=== PATIENT | female | born 1975 | race Caucasian/White ===

== ENCOUNTER 2016-12-09 07:11 | Day surgery (SDC) | payer BC ==
[~2016-12-09 07:11] MED LIST: Lactated Ringers 1,000 ML IV SCH; Lidocaine 2% 5 ML SDV ONE; Midazolam 1 MG/ML 2 ML SDV ONE; Ondansetron 4 MG/2 ML SDV ONE; Propofol 200 MG/20 ML SDV ONE; Sodium Chloride 0.9% 20 ML ONE; ceFAZolin 1 GM Vial ONE; ceFAZolin 2 GM in Premix Bag 1 BAG IV SCH; fentaNYL 250 MCG/5 ML SDV ONE
[2016-12-09] MEDS ORDERED: Lidocaine 1% 20 ML MDV ONE (07:32)
[2016-12-09] MEDS ORDERED: Acetaminophen/HYDROcodone 325-5 MG Tab PO PRN (08:00)
[2016-12-09] MEDS ORDERED: fentaNYL 100 MCG/2 ML SDV IVPUSH PRN (08:38)
--- NOTE | 2016-12-09 09:15 | PCM.PREANE ---
Preanesthetic Assessment - Procedure Proposed Procedure: Left knee arthroscopy and menisectomy - Anesthesia/Transfusion/Family Hx Anesthesia History: Prior Anesthesia Without Reaction Family History of Anesthesia Reaction: No Transfusion History: No Prior Transfusion(s) Intubation History: Unknown - Review of Systems General: No Symptoms Pulmonary: No Symptoms Cardiovascular: No Symptoms Gastrointestinal: No Symptoms, Other (GERD hx occasionally) Neurological: Gait Disturbance (due to knee pain) Other: Reports: None - Physical Assessment NPO Status Date: 12/08/16 NPO Status Time: 22:00 O2 Sat by Pulse Oximetry: 96 Respiratory Rate: 16 Vital Signs: Last Vital Signs Temp 98.4 F 12/09/16 07:26 Pulse 66 12/09/16 07:26 Resp 16 12/09/16 07:26 BP 118/86 12/09/16 07:26 Pulse Ox 96 12/09/16 07:26 Height: 5 ft 10 in Weight: 225 lb ASA Class: 2 Mental Status: Alert & Oriented x3 Airway Class: Mallampati = 1 Dentition: Reports: Normal Dentition Thyro-Mental Finger Breadths: 3 Mouth Opening Finger Breadths: 3 ROM/Head Extension: Full Lungs: Clear to Auscultation, Normal Respiratory Effort Cardiovascular: Regular Rate, Regular Rhythm, No Murmurs - Lab Values: Laboratory Last Values Urine HCG, Qual NEGATIVE (NEGATIVE) 12/09/16 07:15 - Allergies Allergies/Adverse Reactions: Allergies Allergy/AdvReac Type Severity Reaction Status Date / Time codeine Allergy Itching Verified 12/08/16 07:39 - Blood Blood Available: No Product(s) Available: None - Acknowledgements Anesthesia Type Planned: General Anesthesia Pt an Appropriate Candidate for the Planned Anesthesia: Yes Alternatives and Risks of Anesthesia Discussed w Pt/Guardian: Yes Pt/Guardian Understands and Agrees with Anesthesia Plan: Yes PreAnesthesia Questionnaire Gastrointestinal History: Reports: GERD Musculoskeletal History: Reports: None Endocrine/Metabolic History: Reports: Obesity/BMI 30+ - Past Surgical History Head Surgeries/Procedures: Reports: None Musculoskeletal Surgical History: Reports: Arthroscopic Knee Other Musculoskeletal Surgeries/Procedures:: left knee arthroscopy x2 - SUBSTANCE USE Smoking Status *Q: Former Smoker Tobacco Use Within Last Twelve Months: No Recreational Drug Use History: No - HOME MEDS Home Medications: Home Meds Omeprazole/Sodium Bicarbonate [Zegerid 20 MG] 1 tab PO ASDIRECTED PRN 12/08/16 [ History] - CURRENT (IN HOUSE) MEDS Current Meds: Current Medications Hydrocodone Bitart/Acetaminophen ([place] 325-5 Mg) 1 - 2 tab PO Q4H PRN PRN Reason: Pain Fentanyl (Sublimaze) 50 mcg IVPUSH Q5M PRN PRN Reason: Pain (severe 7-10) Stop: 12/10/16 08:38 Cefazolin Sodium/Dextrose 2 gm (/ Premix) 50 mls @ 100 mls/hr IV ONCALL GALEN Lactated Ringer's (Ringers, Lactated) 1,000 mls @ 100 mls/hr IV ASDIRECTED GALEN Last Admin: 12/09/16 07:55 Dose: 100 mls/hr Discontinued Medications Cefazolin Sodium (Ancef) Confirm Administered Dose 2 gm .ROUTE .STK-MED ONE Stop: 12/09/16 07:12 Fentanyl (Sublimaze) Confirm Administered Dose 250 mcg .ROUTE .STK-MED ONE Stop: 12/09/16 07:12 Sodium Chloride (Normal Saline) Confirm Administered Dose 20 mls @ as directed .ROUTE .STK-MED ONE Stop: 12/09/16 07:12 Lidocaine (Xylocaine-Mpf 2%) Confirm Administered Dose 5 ml .ROUTE .STK-MED ONE Stop: 12/09/16 07:12 Lidocaine HCl (Xylocaine 1%) Confirm Administered Dose 20 ml .ROUTE .STK-MED ONE Stop: 12/09/16 07:33 Midazolam HCl (Versed 1 Mg/Ml) Confirm Administered Dose 2 mg .ROUTE .STK-MED ONE Stop: 12/09/16 07:12 Ondansetron HCl (Zofran) Confirm Administered Dose 4 mg .ROUTE .STK-MED ONE Stop: 12/09/16 07:12 Propofol (Diprivan 20 Ml) Confirm Administered Dose 200 mg .ROUTE .STK-MED ONE Stop: 12/09/16 07:12
[2016-12-09] MEDS ORDERED: Metoprolol Tartrate 5 MG/5 ML SDV ONE (09:58)
--- NOTE | 2016-12-09 10:17 | PCM.OPNOTE ---
- General Post-Op/Procedure Note Date of Surgery/Procedure: 12/09/16 Operative Procedure(s): L knee scope with PLM/PMM Post-Op Diagnosis: L knee ACL tear. L knee med/lat meniscus tear. DJD L knee Anesthesia Technique: General LMA Primary Surgeon: Maryana Sánchez Shoe Cleaner: José Miguel Sigala in mLs: 5 Condition: Good Free Text/Narrative:: tt=23 min #[id number]
--- NOTE | 2016-12-09 10:42 | PCM.POSTAN ---
POST ANESTHESIA ASSESSMENT - MENTAL STATUS Mental Status: Alert, Oriented - RESPIRATORY Respiratory Status: Respiratory Rate WNL, Airway Patent, O2 Saturation Stable - CARDIOVASCULAR CV Status: Pulse Rate WNL, Blood Pressure Stable - GASTROINTESTINAL GI Status: No Symptoms - PAIN Pain Score: 2 - POST OP HYDRATION Hydration Status: Adequate & Stable
[2016-12-09] MEDS ORDERED: Scopolamine 1.5 MG Transdermal Patch ONE (11:21)
[2016-12-09] MEDS ORDERED: Metoclopramide 10 MG/2 ML SDV ONE (11:36)
[2016-12-09] MEDS ORDERED: diphenhydrAMINE 50 MG/ML SDV ONE (11:36)
[2016-12-09] MEDS ORDERED: Dexamethasone 4 MG/ML 5 ML MDV ONE (11:39)
--- NOTE | 2016-12-09 13:10 | PCM48HPAN ---
Post Anesthesia Note - EVALUATION WITHIN 48HRS OF ANESTHETIC Vital Signs in Normal Range: Yes Patient Participated in Evaluation: Yes Respiratory Function Stable: Yes Airway Patent: Yes Cardiovascular Function Stable: Yes Hydration Status Stable: Yes Pain Control Satisfactory: Yes Nausea and Vomiting Control Satisfactory: Yes Mental Status Recovered: Yes
--- NOTE | 2016-12-09 15:16 | OR ---
SURGEON: Maryana Sánchez MD DATE OF PROCEDURE: 12/09/2016 PREOPERATIVE DIAGNOSES: 1. Left knee medial meniscus tear. 2. Left knee lateral meniscus tear. 3. Left knee anterior cruciate ligament tear, status post reconstruction. POSTOPERATIVE DIAGNOSES: 1. Left knee medial meniscus tear. 2. Left knee lateral meniscus tear. 3. Left knee anterior cruciate ligament tear, status post reconstruction. 4. Degenerative joint disease, left knee. PROCEDURE: Left knee arthroscopy with partial medial and lateral meniscectomies. WEIGHT CONTROL ENGINEER: José Miguel Sigala PA-C. ANESTHESIA: General. ESTIMATED BLOOD LOSS: 5 mL. TOURNIQUET TIME: 23 minutes. COMPLICATIONS: None. DVT PROPHYLAXIS: Not indicated. IMPLANTS USED: None. BRIEF HISTORY: Daisy is a 41-year-old female who has previously undergone an ACL reconstruction many years ago. She has been bothered by persistent pain and locking in the knee. Due to her lack of response to conservative treatment, I did recommend surgical intervention. The risks and goals of procedure were discussed with the patient and were documented preoperatively. She agreed to proceed. DESCRIPTION OF PROCEDURE: The patient was properly identified and brought to the operating room. She was transferred from the OR cart and placed on the operating table in supine position. General anesthesia was administered. After adequate anesthesia was obtained, a well-padded tourniquet was applied to the left lower extremity. The left lower extremity was then prepped in standard fashion using ChloraPrep solution. It was then sterilely draped. A time-out was performed to ensure correct site and procedure. Preoperative antibiotics were given. The surgical site had been marked preoperatively. An Esmarch was used to exsanguinate the left lower extremity and the tourniquet was inflated to 250 mmHg. A lateral portal arthrotomy was established. Blunt trocar and cannula were introduced into the suprapatellar pouch. Camera, inflow, and outflow were assembled. No significant synovitis was noted. The patellofemoral joint was visualized. Degenerative changes were noted. The patella appeared to track centrally. I then extended down the lateral and medial gutter. She had the start of osteophytes along the medial and lateral femoral condyle. No loose bodies were identified. I then entered the medial compartment. A medial portal arthrotomy was established. A blunt probe was inserted. She had degenerative tearing of the posterior horn of the medial meniscus. This was resected with a combination of biters and shaver. It was again probed and found to be stable. 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 No loose fragments were identified. I then entered the notch. Both the ACL and PCL were visualized. The ACL appeared to have some laxity. Its insertion point onto the lateral femoral condyle remained intact. However, a portion of the anterior bundle did not have any attachment to the tibia. This was loose and did have potential for impingement. It was debrided with the shaver. The remainder of the ACL was intact. I then entered the lateral compartment. Again, unilateral compartment grade 3 chondromalacia was noted along the lateral tibial plateau as well as the lateral femoral condyle. She did have degenerative tearing of the lateral meniscus. This was resected with a combination of biters and shaver. The remainder of the meniscus was probed and found to be stable. I then re-entered the notch. She had diffuse grade 3 to grade 4 chondromalacia along the undersurface of the patella with similar findings along the trochlear groove. She did have an area of loose cartilage along the trochlear groove as well as the patella which was treated with chondroplasty. The instruments were then removed from the knee. The portal sites were closed with 3-0 nylon. A 1% lidocaine was injected along the portal tracts. Xeroform gauze was placed over the wound and a bulky dressing was applied. The tourniquet was then deflated. She was awakened from her anesthetic and transferred back to the operating room cart. She was brought to the recovery room in stable condition. All needle and sponge counts were correct. SURJIT / MARIO ALBERTO /[id number]
[2016-12-09 15:30] VITALS: BP 132/96
== END 2016-12-09 11:45 | disposition home or self-care (01) ==
LOC: MW.SDS 07:11
PROVIDERS: ATTEND Orthopaedic Surgery
DX: M23.322 Other meniscus derangements, posterior horn of medial meniscus, left knee (principal); M23.362 Other meniscus derangements, other lateral meniscus, left knee; M65.862 Other synovitis and tenosynovitis, left lower leg; M94.262 Chondromalacia, left knee; M17.12 Unilateral primary osteoarthritis, left knee; E66.9 Obesity, unspecified; Z87.891 Personal history of nicotine dependence; Z88.5 Allergy status to narcotic agent; Z98.890 Other specified postprocedural states; Z68.32 Body mass index [BMI] 32.0-32.9, adult
CPT/HCPCS: 29880; 81025; J0690; J2250; J2405; J3010; J7120; 01400; 88304; A9270-GY; J1100; J1200; J2704; J2765

== ENCOUNTER 2018-09-22 06:29 | Day surgery (SDC) | payer BC ==
[~2018-09-22 06:29] MED LIST changes: -Lidocaine 2% 5 ML SDV ONE; -Midazolam 1 MG/ML 2 ML SDV ONE; -Ondansetron 4 MG/2 ML SDV ONE; -Propofol 200 MG/20 ML SDV ONE; +Sodium Chloride 0.9% 10 ML SDV IV PRN; +Sodium Chloride 0.9% 10 ML Syringe FLUSH PRN; +Sodium Chloride 0.9% 2.5 ML Syringe FLUSH PRN; -Sodium Chloride 0.9% 20 ML ONE; -ceFAZolin 1 GM Vial ONE; -ceFAZolin 2 GM in Premix Bag 1 BAG IV SCH; -fentaNYL 250 MCG/5 ML SDV ONE
[2018-09-22] MEDS ORDERED: Midazolam 1 MG/ML 2 ML SDV ONE ×2 (07:16→07:56)
[2018-09-22] MEDS ORDERED: Propofol 200 MG/20 ML SDV ONE ×2 (07:16→08:31)
[2018-09-22] MEDS ORDERED: fentaNYL 100 MCG/2 ML SDV ONE (07:16)
[2018-09-22] MEDS ORDERED: Lidocaine 1% with EPINEPHrine 1:100,000 20 ML MDV ONE (07:20)
--- NOTE | 2018-09-22 07:37 | PCM.PREANE ---
Preanesthetic Assessment - Anesthesia/Transfusion/Family Hx Anesthesia History: Prior Anesthesia Without Reaction Family History of Anesthesia Reaction: No Transfusion History: No Prior Transfusion(s) Intubation History: Unknown - Review of Systems General: No Symptoms Pulmonary: No Symptoms Cardiovascular: No Symptoms Gastrointestinal: No Symptoms Neurological: No Symptoms Other: Reports: None - Physical Assessment O2 Sat by Pulse Oximetry: 95 Respiratory Rate: 16 Vital Signs: Last Vital Signs Temp 97.5 F 09/22/18 06:50 Pulse 61 09/22/18 06:50 Resp 16 09/22/18 06:50 BP 115/90 09/22/18 06:50 Pulse Ox 95 09/22/18 06:50 Height: 5 ft 9 in Weight: 89.811 kg ASA Class: 2 Mental Status: Alert & Oriented x3 Airway Class: Mallampati = 1 Dentition: Reports: Normal Dentition ROM/Head Extension: Full Lungs: Clear to Auscultation, Normal Respiratory Effort Cardiovascular: Regular Rate, Regular Rhythm - Lab Values: Laboratory Last Values Urine HCG, Qual NEGATIVE (NEGATIVE) 09/22/18 06:45 - Allergies Allergies/Adverse Reactions: Allergies Allergy/AdvReac Type Severity Reaction Status Date / Time codeine Allergy Itching Verified 09/19/18 12:19 - Blood Blood Available: No - Acknowledgements Anesthesia Type Planned: General Anesthesia Pt an Appropriate Candidate for the Planned Anesthesia: Yes Alternatives and Risks of Anesthesia Discussed w Pt/Guardian: Yes Pt/Guardian Understands and Agrees with Anesthesia Plan: Yes PreAnesthesia Questionnaire Gastrointestinal History: Reports: Other (See Below) Other Gastrointestinal History: occasional heartburn- takes OTC meds Musculoskeletal History: Reports: None Neurological History: Reports: Concussion Endocrine/Metabolic History: Reports: Obesity/BMI 30+ - Past Surgical History Head Surgeries/Procedures: Reports: None Musculoskeletal Surgical History: Reports: Arthroscopic Knee Other Musculoskeletal Surgeries/Procedures:: ACL repair left knee - SUBSTANCE USE Smoking Status *Q: Current Every Day Smoker Tobacco Use Within Last Twelve Months: Cigarettes Recreational Drug Use History: No - HOME MEDS Home Medications: Home Meds Omeprazole/Sodium Bicarbonate [Zegerid 20 MG] 1 tab PO ASDIRECTED PRN 12/08/16 [ History] - CURRENT (IN HOUSE) MEDS Current Meds: Current Medications Lactated Ringer's (Ringers, Lactated) 1,000 mls @ 125 mls/hr IV ASDIRECTED GALEN Sodium Chloride (Saline Flush) 10 ml FLUSH ASDIRECTED PRN PRN Reason: Keep Vein Open Sodium Chloride (Saline Flush) 2.5 ml FLUSH ASDIRECTED PRN PRN Reason: Keep Vein Open Sodium Chloride (Normal Saline) 10 ml IV ASDIRECTED PRN PRN Reason: IV Use Discontinued Medications Fentanyl (Sublimaze) Confirm Administered Dose 100 mcg .ROUTE .STK-MED ONE Stop: 09/22/18 07:17 Lidocaine/Epinephrine (Xylocaine 1% With Epinephrine 1:100,000) Confirm Administered Dose 20 ml .ROUTE .STK-MED ONE Stop: 09/22/18 07:21 Midazolam HCl (Versed 1 Mg/Ml) Confirm Administered Dose 2 mg .ROUTE .STK-MED ONE Stop: 09/22/18 07:17 Propofol (Diprivan 20 Ml) Confirm Administered Dose 200 mg .ROUTE .STK-MED ONE Stop: 09/22/18 07:17
[2018-09-22] MEDS ORDERED: Phenylephrine/Normal Saline 100 MCG/ML 10 ML Syringe ONE (08:07)
[2018-09-22] MEDS ORDERED: ceFAZolin 2 GM in Premix Bag 1 BAG IV ONE (08:47)
--- NOTE | 2018-09-22 08:49 | PCM.OPNOTE ---
- General Post-Op/Procedure Note Date of Surgery/Procedure: 09/22/18 Operative Procedure(s): Excision of right neck mass Findings: 4 x 3.5 x 1cm (W X L X D) lipoma on right side of posterior neck/back Pre Op Diagnosis: Right neck mass Post-Op Diagnosis: Lipoma Anesthesia Technique: MAC Primary Surgeon: Anna Lucia Fluid Replacement, Intraop: 800 EBL in mLs: 5 Condition: Good
[2018-09-22] MEDS ORDERED: ceFAZolin/Dextrose,Iso-Osmotic 2 GM/50 ML Duplex Bag IV ONE (08:57)
[2018-09-22 09:17] VITALS: BP 121/77
--- NOTE | 2018-09-22 09:19 | PCM.POSTAN ---
POST ANESTHESIA ASSESSMENT - MENTAL STATUS Mental Status: Alert, Oriented - RESPIRATORY Respiratory Status: Respiratory Rate WNL, Airway Patent, O2 Saturation Stable - CARDIOVASCULAR CV Status: Pulse Rate WNL, Blood Pressure Stable - GASTROINTESTINAL GI Status: No Symptoms - POST OP HYDRATION Hydration Status: Adequate & Stable
--- NOTE | 2018-09-22 09:20 | PCM48HPAN ---
Post Anesthesia Note - EVALUATION WITHIN 48HRS OF ANESTHETIC Vital Signs in Normal Range: Yes Patient Participated in Evaluation: Yes Respiratory Function Stable: Yes Airway Patent: Yes Cardiovascular Function Stable: Yes Hydration Status Stable: Yes Pain Control Satisfactory: Yes Nausea and Vomiting Control Satisfactory: Yes Mental Status Recovered: Yes Resp Rate: 16
--- NOTE | 2018-09-22 14:01 | OR ---
SURGEON: ANNA LUCIA MD DATE OF PROCEDURE: 09/22/2018 PREOPERATIVE DIAGNOSIS: Right neck mass. POSTOPERATIVE DIAGNOSIS: Right neck lipoma. PROCEDURE PERFORMED: Right neck mass excision. PRIMARY SURGEON: Anna Lucia MD. ANESTHESIA: MAC, local. FLUIDS: 800 mL of crystalloid. ESTIMATED BLOOD LOSS: 5 mL. FINDINGS: A 4 cm x 3.5 cm x 1 cm mass along the right posterior neck/back. COMPLICATIONS: None. INDICATIONS: The patient is a 43-year-old female, who presents with a mass of her right neck. Ultrasound showed this to be a possible lipoma. Given its location and size, the decision was made to take her to the operating room to excise this. The patient and I discussed the procedure, expected perioperative course, and risks including bleeding, infection, or damage to surrounding structures. The patient verbalized understanding and wishes to proceed. PROCEDURE IN DETAIL: The patient was brought into the OR and placed on the OR table in a left lateral decubitus position. A time-out was completed verifying the patient's name, age, date of , allergies, and procedure to be performed. Monitored anesthesia care was induced. Continuous oxygen was provided via nasal cannula throughout the case. The posterior neck and upper back were prepped and draped in the usual standard fashion. I anesthetized the area overlying the top of the mass with 1% lidocaine with epinephrine. A #15 blade was used to make a 4 cm incision over the top of this mass. Electrocautery was used to dissect down to the level of the subcutaneous fat. A firm mass was palpated underneath the skin. Superior and inferior skin flaps were made using cautery. I grasped the mass with an Allis and started dissecting it free from the surrounding subcutaneous fat. The mass abutted the paravertebral muscle fascia. I anesthetized this area with 1% lidocaine plain. I then undermined the lesion using cautery. Once it was free from the surrounding tissues, I placed it on the back table and measured it. It measured 4 cm in width, 3.5 cm in length, and 1 cm in depth. It was sent to pathology labeled as right neck lipoma as it appeared to be fatty and have characteristics consistent with a lipoma. I then inspected my operative field. Cautery was used to achieve hemostasis. I then closed the wound with interrupted 3-0 Vicryl in the subcutaneous fat layer to close the potential space. Given that the incision was along the neck where there will be a lot of motion, I closed the skin with interrupted 3-0 Ethilon sutures. I then covered the wound with sterile dressings. All counts were complete and correct at the end of the case. The patient tolerated the procedure well and was taken to the PACU in stable condition. KATELYNN LLANES /[id number]
== END 2018-09-22 09:35 | disposition home or self-care (01) ==
LOC: MW.SDS 06:29
PROVIDERS: ATTEND Surgery
DX: D17.0 Benign lipomatous neoplasm of skin and subcutaneous tissue of head, face and neck (principal); M17.12 Unilateral primary osteoarthritis, left knee; M77.11 Lateral epicondylitis, right elbow; Z87.891 Personal history of nicotine dependence; Z88.5 Allergy status to narcotic agent
CPT/HCPCS: 81025; A4217; J0690; J2250; J2370; J2704; J3010; J7120